=== PATIENT | male | born 1995 | race Two or more races ===

== ENCOUNTER 2016-08-06 15:14 | Emergency (ER) | payer OTHER ==
[2016-08-06 15:19] VITALS: BP 120/81
[2016-08-06] MEDS ORDERED: SILVER SULFADIAZINE 1% CREAM 25 GM TP ONE (15:29)
[2016-08-06] MEDS ORDERED: HYDROCODONE/ACETAMINOPHEN 5-325 MG TABLET PO ONE (15:29)
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
== END 2016-08-06 15:58 | disposition home or self-care (01) ==
LOC: ER 15:14
DX: T23.202A Burn of second degree of left hand, unspecified site, initial encounter (principal); X19.XXXA Contact with other heat and hot substances, initial encounter
CPT/HCPCS: 99283